=== PATIENT | male | born 1985 | race American Indian/Alaskan Native ===

== ENCOUNTER 2022-02-25 15:49 | Emergency (ER) | payer OTHER ==
[2022-02-25 16:03] VITALS: BP 120/70
[2022-02-25] MEDS ORDERED: CYCLOBENZAPRINE 10 MG TAB PO ONE (16:47)
[2022-02-25] MEDS ORDERED: KETOROLAC 10 MG TAB PO ONE (16:47)
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
== END 2022-02-25 18:05 | disposition home or self-care (01) ==
LOC: ED 15:49
DX: M79.632 Pain in left forearm (principal); M54.2 Cervicalgia; V89.2XXA Person injured in unspecified motor-vehicle accident, traffic, initial encounter; Y93.89 Activity, other specified; Y92.89 Other specified places as the place of occurrence of the external cause; Y99.8 Other external cause status
CPT/HCPCS: 99283